=== PATIENT | female | born 1935 | race Caucasian/White ===

== ENCOUNTER 2018-02-10 13:56 | Inpatient (IN) | payer MEDICARE, MEDICAID ==
[~2018-02-10] VITALS: Ht 152.4 cm; Wt 59.0 kg
[~2018-02-10 13:56] MED LIST: ASPI-1073 PO; DOCU-138 PO; LOSA50TA20 PO; METF-414 PO; MIRT15TA PO
[2018-02-10] MEDS ORDERED: ACETAMINOPHEN 325MG TABLET PO ONE (14:45)
[2018-02-10 15:26] LABS: BASOPHILS % 0.6 % (0.0-2.0); EOSINOPHILS % 1.8 % (0.0-5.0); HEMATOCRIT. 33.8 % (36.0-48.0); HEMOGLOBIN. 11.8 g/dL (12.0-16.0); MEAN CORPUSCULAR HEMOGLOBIN 31.2 pg (28.0-32.0); MEAN CORPUSCULAR VOLUME 89.5 fL (81.0-99.0); MEAN PLATELET VOLUME 7.7 fl (7.4-10.4); MONOCYTES % 8.2 % (2.0-8.0); NEUTROPHILS % 74.4 % (40.0-76.0); PLATELET 171 x1000/uL (130-400); RED BLOOD CELL COUNT 3.77 mill/uL (4.2-5.4); RED CELL DISTRIBUTION WIDTH 13.5 % (11.6-14.6)
[2018-02-10 15:30] LABS: CHLORIDE 107 mEq/L (98-107)
[2018-02-10] MEDS ORDERED: POTASSIUM CHLORIDE 20MEQ TABLET SR PO ONE (16:45)
[2018-02-10 17:06] LABS: CLARITY URINE CLEAR (CLEAR); COLOR URINE YELLOW (YELLOW); KETONES URINE TRACE (NEGATIVE); LEUKOCYTE ESTERASE URINE 1+ (NEGATIVE); NITRITE URINE NEGATIVE (NEGATIVE); OCCULT BLOOD URINE NEGATIVE (NEGATIVE); PROTEIN URINE NEGATIVE (NEGATIVE); SPECIFIC GRAVITY URINE 1.012 (1.005-1.030)
[2018-02-11] MEDS ORDERED: CLONIDINE 0.1MG TABLET PO PRN (12:30)
[2018-02-11] MEDS ORDERED: LORAZEPAM 0.5MG TABLET PO PRN (12:30)
[2018-02-11] MEDS ORDERED: DIPHENHYDRAMINE 50MG/ML VIAL IV PRN (12:30)
[2018-02-11] MEDS ORDERED: MAGNESIUM/ALUMINUM HYDROXIDE/SIMETHICONE 30ML UDC PO PRN (12:30)
[2018-02-11] MEDS ORDERED: GUAIFENESIN 200MG/10ML SUGAR FREE UDC PO PRN (12:30)
[2018-02-11] MEDS ORDERED: DOCUSATE SODIUM 100MG CAPSULE PO PRN (12:30)
[2018-02-11] MEDS ORDERED: IPRATROPIUM/ALBUTEROL 0.5-3(2.5)MG/3ML NEB INH PRN (12:30)
[2018-02-11] MEDS ORDERED: NA PHOS,M-B/NA PHOS,DI-BA ENEMA 118ML PR PRN (12:30)
[2018-02-11] MEDS ORDERED: ONDANSETRON HCL 4MG/2ML INJ IV PRN (12:30)
[2018-02-11] MEDS ORDERED: ACETAMINOPHEN 650MG SUPP PR PRN (12:30)
[2018-02-11] MEDS: SODIUM CHLORIDE 0.45% 1,000 ML IV SCH ×2 (14:45→21:52)
[2018-02-11 15:28] VITALS: BP 117/53
[2018-02-11] MEDS: ENOXAPARIN 40MG/0.4ML SYR SUBCUT SCH (17:00)
[2018-02-11 17:04] VITALS: BP 117/53
[2018-02-11] MEDS ORDERED: INFLUENZA VIRUS VACCINE(AFLURIA) 0.5ML SYR IM ONE (19:30)
[2018-02-11 20:00] VITALS: BP 118/54
[2018-02-12] VITALS: BP 143/76
[2018-02-12 04:00] VITALS: BP 127/63
[2018-02-12 07:23] LABS: BASOPHILS % 0.6 % (0.0-2.0); EOSINOPHILS % 3.9 % (0.0-5.0); HEMATOCRIT. 35.3 % (36.0-48.0); LYMPHOCYTES % 20.4 % (20.0-50.0); MEAN CORPUSCULAR HEMOGLOBIN 30.7 pg (28.0-32.0); MEAN CORPUSCULAR VOLUME 90.5 fL (81.0-99.0); MEAN PLATELET VOLUME 7.7 fl (7.4-10.4); NEUTROPHILS % 67.1 % (40.0-76.0); PLATELET 181 x1000/uL (130-400); RED CELL DISTRIBUTION WIDTH 13.2 % (11.6-14.6)
[2018-02-12 07:34] LABS: CHLORIDE 108 mEq/L (98-107)
[2018-02-12 07:49] LABS: LDL CHOLESTEROL 58 mg/dL (5-100)
[2018-02-12 07:51] LABS: HDL CHOLESTEROL 46 mg/dL (40-59); T4 FREE 1.25 ng/dL (0.76-1.46)
[2018-02-12 08:00] VITALS: BP 111/57
[2018-02-12] MEDS: ACETAMINOPHEN 325MG TABLET PO PRN (11:30)
[2018-02-12 11:53] VITALS: BP 132/56
[2018-02-12 16:00] VITALS: BP 122/80
[2018-02-12] MEDS: ENOXAPARIN 40MG/0.4ML SYR SUBCUT SCH (16:34)
[2018-02-12 20:00] VITALS: BP 125/64
[2018-02-12] MEDS: HYDROCODONE/ACETAMINOPHEN 5/325MG TABLET PO PRN (22:13)
[2018-02-13] VITALS: BP 128/66
[2018-02-13 04:00] VITALS: BP 111/54
[2018-02-13] MEDS: SODIUM CHLORIDE 0.45% 1,000 ML IV SCH (06:45)
[2018-02-13 06:54] LABS: *AMPHETAMINES SCREEN URINE NEGATIVE (NEGATIVE); *BARBITURATES SCREEN URINE NEGATIVE (NEGATIVE); *BENZODIAZEPINES SCREEN URINE NEGATIVE (NEGATIVE); *COCAINE SCREEN URINE NEGATIVE (NEGATIVE); METHADONE URINE SCREEN NEGATIVE (NEGATIVE); OPIATES URINE SCREEN PRESUMTIVE POSITIVE (NEGATIVE)
[2018-02-13 06:55] LABS: CANNABINOID URINE SCREEN NEGATIVE (NEGATIVE); PHENCYCLIDINE URINE SCREEN NEGATIVE (NEGATIVE)
[2018-02-13 08:19] VITALS: BP 153/74
[2018-02-13 12:00] VITALS: BP 118/57
[2018-02-13 16:00] VITALS: BP 112/47
[2018-02-13] MEDS: ENOXAPARIN 40MG/0.4ML SYR SUBCUT SCH (16:44)
[2018-02-13] MEDS: HYDROCODONE/ACETAMINOPHEN 5/325MG TABLET PO PRN (16:44)
[2018-02-13 20:00] VITALS: BP 93/46
[2018-02-14] VITALS (9 sets, daily range): BP systolic 98–134; BP diastolic 52–75
[2018-02-14 07:24] LABS: BASOPHILS % 0.9 % (0.0-2.0); EOSINOPHILS % 6.1 % (0.0-5.0); HEMATOCRIT. 34.8 % (36.0-48.0); MEAN CORPUSCULAR HEMOGLOBIN 31.4 pg (28.0-32.0); MEAN PLATELET VOLUME 7.6 fl (7.4-10.4); MONOCYTES % 7.7 % (2.0-8.0); NEUTROPHILS % 60.3 % (40.0-76.0); PLATELET 175 x1000/uL (130-400); RED BLOOD CELL COUNT 3.82 mill/uL (4.2-5.4); RED CELL DISTRIBUTION WIDTH 13.1 % (11.6-14.6)
[2018-02-14 08:39] LABS: CHLORIDE 109 mEq/L (98-107)
[2018-02-14] MEDS: ACETAMINOPHEN 325MG TABLET PO PRN (10:18)
[2018-02-14] MEDS ORDERED: IOHEXOL-350 100 ML BOTTLE ONE (14:41)
[2018-02-14] MEDS: HYDROCODONE/ACETAMINOPHEN 5/325MG TABLET PO PRN (20:45)
== END 2018-02-14 21:10 | DRG 552 ==
LOC: ER 13:56 → 7WST 02-11 12:11 → SUPCPDRO 02-11 12:18 → ENRESERV 02-11 13:18
PROVIDERS: ADMIT Internal Medicine; ATTEND Internal Medicine
DX: M47.897 Other spondylosis, lumbosacral region (principal); E87.6 Hypokalemia; F32.9 Major depressive disorder, single episode, unspecified; Z96.659 Presence of unspecified artificial knee joint; M19.90 Unspecified osteoarthritis, unspecified site; M48.07 Spinal stenosis, lumbosacral region; M79.671 Pain in right foot; R53.1 Weakness; M43.17 Spondylolisthesis, lumbosacral region; I10 Essential (primary) hypertension; R23.4 Changes in skin texture; D64.9 Anemia, unspecified; Z59.0 Homelessness; Z79.82 Long term (current) use of aspirin; Z79.899 Other long term (current) drug therapy
CPT/HCPCS: 36415; 72100; 72148; 73560; 75635; 80061; 80305; 83036; 84439; 84443; 87077; 87186; 90686; 93005; 93306; 93923; 93970; 96360; 96361; 96372; 97116; 97162; 97530; 99285; J1650; Q9967

== ENCOUNTER 2019-02-10 06:01 | Emergency (ER) | payer MEDICARE, MEDICAID ==
[~2019-02-10] VITALS: Ht 144.8 cm; Wt 57.0 kg
[~2019-02-10 06:01] MED LIST changes: -LOSA50TA20 PO; +LOSA50TA41 PO
[2019-02-10] MEDS ORDERED: HYDROCODONE/ACETAMINOPHEN 5/325MG TABLET PO STA (06:37)
[2019-02-10 06:53] LABS: BASOPHILS % 0.9 % (0.0-2.0); EOSINOPHILS % 2.5 % (0.0-5.0); HEMATOCRIT. 40.6 % (36.0-48.0); HEMOGLOBIN. 13.9 g/dL (12.0-16.0); LYMPHOCYTES % 20.6 % (20.0-50.0); MEAN CORPUSCULAR HEMOGLOBIN 30.9 pg (28.0-32.0); MEAN CORPUSCULAR VOLUME 90.2 fL (81.0-99.0); MEAN PLATELET VOLUME 7.7 fl (7.4-10.4); MONOCYTES % 5.8 % (2.0-8.0); NEUTROPHILS % 70.2 % (40.0-76.0); PLATELET 152 x1000/uL (130-400); RED CELL DISTRIBUTION WIDTH 14.5 % (11.6-14.6)
[2019-02-10 06:56] LABS: CHLORIDE 107 mEq/L (98-107)
[2019-02-10 07:38] LABS: CLARITY URINE CLEAR (CLEAR); COLOR URINE YELLOW (YELLOW); KETONES URINE NEGATIVE (NEGATIVE); LEUKOCYTE ESTERASE URINE TRACE (NEGATIVE); NITRITE URINE NEGATIVE (NEGATIVE); OCCULT BLOOD URINE TRACE (NEGATIVE); PROTEIN URINE NEGATIVE (NEGATIVE); SPECIFIC GRAVITY URINE 1.009 (1.005-1.030); UROBILINOGEN URINE 0.2 E.U./dL (0.2-1.0)
[2019-02-10 10:00] VITALS: BP 125/54
== END 2019-02-10 10:30 ==
LOC: ER 06:01
DX: M79.18 Myalgia, other site (principal); E88.09 Other disorders of plasma-protein metabolism, not elsewhere classified; L30.9 Dermatitis, unspecified; I11.0 Hypertensive heart disease with heart failure; I50.9 Heart failure, unspecified; F03.90 Unspecified dementia, unspecified severity, without behavioral disturbance, psychotic disturbance, mood disturbance, and anxiety; K59.00 Constipation, unspecified; Z96.659 Presence of unspecified artificial knee joint; Z79.82 Long term (current) use of aspirin; Z79.899 Other long term (current) drug therapy
CPT/HCPCS: 36415; 71045; 73630; 81003; 83605; 93005; 99284